=== PATIENT | female | born 1955 | race Caucasian/White ===

== ENCOUNTER → 2016-07-29 | Outpatient (CLI) | payer OTHER ==
[~2016-07-29] MED LIST: OXYC1TAB63 PO
[2016-07-29 10:36] LABS: APTT (PATIENT) 25.7 SEC (24.3-30.1); INTERNATIONAL NORMALIZED RATIO 0.9 RATIO; PROTHROMBIN TIME - PATIENT 10.1 SEC (9.8-11.6)
[2016-07-29 10:46] LABS: AUTOMATED NEUTROPHIL # 4.1 TH/MM3 (1.8-7.7); BASOPHIL % 0.2 % (0.0-2.0); EOSINOPHIL # 0.1 TH/MM3 (0-0.4); EOSINOPHIL % 1.9 % (0.0-4.0); HEMATOCRIT 39.5 % (35.0-46.0); HEMO FLAGS DIFF FINAL; LYMPH % 26.1 % (9.0-44.0); LYMPHOCYTE # 1.6 TH/MM3 (1.0-4.8); MEAN CELL VOLUME 90.4 FL (80.0-100.0); MEAN CORPUSCULAR HEMOGLOBIN 29.1 PG (27.0-34.0); MEAN CORPUSCULAR HGB CONC 32.2 % (32.0-36.0); MONO % 7.5 % (0.0-8.0); NEUT % 64.3 % (16.0-70.0); PLATELET COUNT 245 TH/MM3 (150-450); RED BLOOD COUNT 4.38 MIL/MM3 (4.00-5.30); RED CELL DISTRIBUTION WIDTH 17.1 % (11.6-17.2); WHITE BLOOD COUNT 6.3 TH/MM3 (4.0-11.0)
[2016-07-29 10:47] LABS: ALKALINE PHOSPHATASE 54 U/L (45-117); ALT (GPT) 29 U/L (10-53); ANION GAP 10 MEQ/L (5-15); AST (GOT) 20 U/L (15-37); BICARBONATE 26.5 MEQ/L (21.0-32.0); BLOOD UREA NITROGEN 16 MG/DL (7-18); CHLORIDE 105 MEQ/L (98-107); GLOMERULAR FILTRATION RATE 50 ML/MIN (>89); GLUCOSE,FASTING 92 MG/DL (74-99); POTASSIUM 4.1 MEQ/L (3.5-5.1); SODIUM (NA) 141 MEQ/L (136-145); TOTAL BILIRUBIN ADULT 0.4 MG/DL (0.2-1.0)
--- NOTE | 2016-07-29 13:44 | EKG ---
Date Performed: 07/29/2016 Time Performed: 09:58:23 PTAGE: 61 years EKG: Sinus rhythm LOW QRS VOLTAGE IN PRECORDIAL LEADS BORDERLINE ECG NO PREVIOUS TRACING DOCTOR: Robert Lyons Interpretating Date/Time 07/29/2016 13:42:37
== END ==
LOC: CPRE 09:35
PROVIDERS: ATTEND Obstetrics & Gynecology Gynecologic Oncology
DX: Z01.810 Encounter for preprocedural cardiovascular examination (principal); Z01.811 Encounter for preprocedural respiratory examination; Z01.812 Encounter for preprocedural laboratory examination; C54.1 Malignant neoplasm of endometrium
CPT/HCPCS: 36415; 80053; 85025; 85610; 85730; 93005

== ENCOUNTER 2016-08-12 05:33 | Observation (INO) | payer OTHER ==
[~2016-08-12] VITALS: Ht 162.6 cm; Wt 65.6 kg
[2016-08-12] MEDS ORDERED: POVIDONE IODINE 5% (ANTISEPSIS KIT) 4 APPLICATIONS EACH NARE PRN (06:00)
[2016-08-12] MEDS ORDERED: METOPROLOL TARTRATE 25 MG TAB PO PRN (06:00)
[2016-08-12] MEDS ORDERED: SODIUM CHLORIDE FLUSH PRN IV FLUSH (06:00)
[2016-08-12] MEDS ORDERED: CHLORHEXIDINE GLUCONATE 2 % 1 PACK (2 CLOTHS) TOPICAL PRN (06:00)
[2016-08-12] MEDS ORDERED: SODIUM CHLORID 0.9% 500 ML IV PRN (06:00)
[2016-08-12] MEDS ORDERED: ceFAZolin 1,000 MG/NS 100 ML IV SCH ×2 (06:00)
[2016-08-12] MEDS ORDERED: HEPARIN SODIUM - SQ 10,000 UNITS/ML VIAL SQ PRN (06:00)
[2016-08-12] MEDS ORDERED: LACTATED RINGER'S 1000 ML INJ 1,000 ML IV SCH (06:00)
[2016-08-12] MEDS ORDERED: INSULIN HUMAN REGULAR 1,000 UNITS/10 ML VIAL SQ PRN (06:00)
[2016-08-12 06:11] VITALS: BP 105/59; PULSE 63; RESP 16; TEMP 98; O2SAT 98
[2016-08-12] MEDS ORDERED: LIDOCAINE 1%/EPINEPHrine 1:100,000 SOLN 20 ML VIAL ONE (06:49)
[2016-08-12] MEDS ORDERED: SUGAMMADEX SODIUM 200 MG/2 ML VIAL IV PUSH ONE ×2 (07:09)
[2016-08-12] MEDS ORDERED: HYDROmorphone HCL PF 2 MG/ML VIAL ONE (07:10)
[2016-08-12] MEDS ORDERED: ACETAMINOPHEN 1000 MG/100 ML VIAL IV ONE (07:10)
[2016-08-12] MEDS ORDERED: MIDAZOLAM HCL 2 MG/2 ML VIAL ONE (07:13)
[2016-08-12] MEDS ORDERED: FAMOTIDINE 20 MG/2 ML VIAL ONE (07:13)
[2016-08-12] MEDS ORDERED: DEXAMETHASONE SOD PHOS 4 MG/ML VIAL ONE (07:13)
[2016-08-12] MEDS ORDERED: fentaNYL CITRATE 250 MCG/5 ML AMP ONE (07:25)
[2016-08-12] MEDS ORDERED: SODIUM CHLORIDE FLUSH BID IV FLUSH SCH (09:00)
[2016-08-12] MEDS: D5-1/2 NS + KCL 20 MEQ INJ 1,000 ML IV SCH ×3 (10:16→20:29)
[2016-08-12] MEDS ORDERED: SODIUM CHLORIDE 0.9% FLUSH 10 ML FLUSH IV FLUSH PRN (10:30)
[2016-08-12] MEDS ORDERED: LORazepam 0.5 MG TAB PO PRN (10:30)
[2016-08-12] MEDS ORDERED: oxyCODONE/ACETAMINOPHEN 5 MG/325 MG TAB PO PRN (10:30)
[2016-08-12] MEDS ORDERED: ONDANSETRON HCL 4 MG/2 ML VIAL IVP PRN (10:30)
[2016-08-12] MEDS ORDERED: DO NOT ADM ANY ANTICOAGULANT DRUGS PRN (10:34)
[2016-08-12] MEDS ORDERED: *MEPERIDINE 25 MG INJ VIAL PERIprocedural Use ONLY ONE (10:36)
[2016-08-12] MEDS: KETOROLAC TROMETHAMINE 30 MG/ML (IVP) VIAL IVP SCH ×3 (10:50→23:52)
[2016-08-12] MEDS ORDERED: PROPOFOL 200 MG/20 ML AMP IV ONE (12:00)
[2016-08-12] MEDS ORDERED: ePHEDrine/NS 25 MG/5 ML SYR IV ONE (12:00)
[2016-08-12] MEDS ORDERED: NORMOSOL R INJ 1,000 ML IV ONE (12:00)
[2016-08-12] MEDS ORDERED: LACTATED RINGER'S 1000 ML INJ 1,000 ML IV ONE (12:00)
[2016-08-12] MEDS ORDERED: NEOSTIGMINE 3 MG/3 ML SYR IV ONE (12:00)
[2016-08-12] MEDS ORDERED: ONDANSETRON HCL 4 MG/2 ML VIAL IV PUSH ONE (12:00)
[2016-08-12 14:00] VITALS: BP 135/72; PULSE 65; RESP 20; TEMP 95.9; O2SAT 100
[2016-08-12] MEDS: oxyCODONE/ACETAMINOPHEN 5 MG/325 MG TAB PO PRN ×2 (15:56→20:24)
[2016-08-12 16:00] VITALS: BP 115/67; PULSE 66; RESP 20; TEMP 95.4; O2SAT 100
[2016-08-12 20:00] VITALS: BP 107/65; PULSE 67; RESP 18; TEMP 97; O2SAT 100
[2016-08-12] MEDS: SODIUM CHLORIDE 0.9% FLUSH 10 ML FLUSH IV FLUSH SCH (21:00)
[2016-08-12 22:06] VITALS: O2SAT 98
[2016-08-13] VITALS: BP 110/68; PULSE 70; RESP 16; TEMP 96.9; O2SAT 100
[2016-08-13] MEDS: oxyCODONE/ACETAMINOPHEN 5 MG/325 MG TAB PO PRN (00:50)
[2016-08-13 04:00] VITALS: BP 102/55; PULSE 66; RESP 17; TEMP 96.8; O2SAT 98
[2016-08-13] MEDS: KETOROLAC TROMETHAMINE 30 MG/ML (IVP) VIAL IVP SCH (05:22)
[2016-08-13] MEDS ORDERED: OXYC1TAB63 PO (06:51)
[2016-08-13 06:59] LABS: AUTOMATED NEUTROPHIL # 4.5 TH/MM3 (1.8-7.7); BASOPHIL % 0.1 % (0.0-2.0); EOSINOPHIL % 0.3 % (0.0-4.0); HEMATOCRIT 31.4 % (35.0-46.0); HEMO FLAGS DIFF FINAL; LYMPH % 18.2 % (9.0-44.0); LYMPHOCYTE # 1.1 TH/MM3 (1.0-4.8); MEAN CORPUSCULAR HEMOGLOBIN 30.8 PG (27.0-34.0); MEAN CORPUSCULAR HGB CONC 34.2 % (32.0-36.0); MONO % 6.9 % (0.0-8.0); NEUT % 74.5 % (16.0-70.0); PLATELET COUNT 169 TH/MM3 (150-450); RED BLOOD COUNT 3.49 MIL/MM3 (4.00-5.30)
[2016-08-13 07:20] LABS: BICARBONATE 26.2 MEQ/L (21.0-32.0); POTASSIUM 4.2 MEQ/L (3.5-5.1)
[2016-08-13 08:00] VITALS: BP 94/43; PULSE 64; RESP 12; TEMP 96.4; O2SAT 99
[2016-08-13] MEDS: SODIUM CHLORIDE 0.9% FLUSH 10 ML FLUSH IV FLUSH SCH (09:00)
--- NOTE | 2016-08-17 11:20 | MP ---
cc: PARVEEN TEAGUE M.D., KELLY L. MD DATE OF SURGERY 08/12/2016 PREOPERATIVE DIAGNOSIS Endometrial adenocarcinoma, grade 1. POSTOPERATIVE DIAGNOSIS Endometrial adenocarcinoma, grade 1. PROCEDURE Robotic-assisted laparoscopic hysterectomy bilateral salpingo-oophorectomy. 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 She was counseled regarding options and was in favor of surgery via minimally invasive techniques. FINDINGS On exam under anesthesia, the uterine cavity sounded to 6 cm. Upon laparoscopy, the uterus was small. There was a fundal fibroid that was approximately 5 cm in diameter, tubes and ovaries appeared normal and it appears as though she was status post prior tubal ligation. There were no appreciably enlarged pelvic or para-aortic lymph nodes. There were no peritoneal implants. The liver diaphragm edges were smooth. Large, small bowel, and adjacent mesentery were normal in appearance. The uterus once removed was inspected. The tumor was thought to be between 1 and 1-1/2 cm in diameter. It was exophytic in that it arose from the endometrium, but there was no overt evidence of myometrial invasion. There was no endocervical extension. PROCEDURE The patient taken to the operating room, placed in the dorsal lithotomy position after general endotracheal anesthesia was administered. A time-out was undertaken. She was identified by sight recognition and hospital ID bracelet and the proposed procedure was reviewed and confirmed. She was carefully positioned in padded Moris stirrups. Her arms were padded and secured to the sides. She was further secured to the operating table with egg crate padding and tape in a cross chest over the shoulder fashion. All sites noted to be properly aligned with no malalignments or pressure points. She was prepped in a sterile fashion, draped below the waist, placed in high lithotomy position, cervix was grasped, uterine cavity sounded, cervix dilated and a standard V-Care manipulator was inserted and secured in the usual fashion. Wright catheter placed in the bladder. She was returned to low lithotomy position. A change of sterile gloves was undertaken. We completed draping in anticipation of laparoscopy. After confirming that an orogastric airway was in the stomach on suction with manual elevation of the abdominal wall and direct laparoscopic visualization, a 5 mm cannula was introduced into the left upper quadrant and an atraumatic entry was confirmed. Carbon dioxide gas was insufflated into the peritoneal cavity. A 12 mm cannula placed in the midline above the umbilicus and a 8-mm cannulas placed in the right upper quadrant and left lateral quadrant. She was placed in steep Trendelenburg position. Peritoneal washings were obtained for cytology. The anatomy was explored with findings as described above. Three Ray-Sanaz sponges were placed around the root of the small bowel mesentery. The robotic system brought to the operative field attached in usual fashion. Monopolar scissors, fenestrated bipolar forceps and progressed manipulators placed in arms number one, two and three respectively. I took my place at the surgeon's console. The right round ligament isolated, cauterized transected. The anterior portion leafs of the broad ligament were opened. The right ureter was identified. The right infundibulopelvic ligament was isolated. The intervening peritoneum was opened. The infundibulopelvic ligament was cauterized to the level of the pelvic brim where it was transected. The posterior peritoneum opened along the right side of the uterus and cervix. Right vesicouterine peritoneum dissected off the lower uterine segment and cervix. Right uterine vessels were skeletonized, cauterized and transected as were the cardinal, paracervical and uterosacral ligaments. Attention was directed toward the left side. Adhesions were taken down to mobilize the colon to gain access to the left pelvic sidewall structures. The left round ligament was isolated, cauterized and transected and the anterior and posterior leafs of the broad ligament were opened. The left ureter was identified. The left infundibulopelvic ligament was isolated to the level of the pelvic brim where it was cauterized and transected. The posterior peritoneum was opened along the left side of the uterus and cervix and the left vesicouterine peritoneum was dissected off the lower uterine segment and cervix. The left uterine vessels were skeletonized, cauterized and transected as were the cardinal, paracervical, and uterosacral ligaments and then a circumferential colpotomy was performed the cervix from the upper vagina. The specimen was withdrawn transvaginally which included uterus, cervix, tubes and ovaries and the attached fundal leiomyoma and a Pneumooccluder balloon was placed in the vagina to maintain pneumoperitoneum. Instruments one and three exchanged for needle drivers. As a 0 Vicryl suture was introduced, the vaginal cuff was closed starting at the left corner full-thickness closure including the posterior uterosacral ligament and posterior peritoneum tied via instrument tie. The closure was held on counter traction as a running continuous closure was carried across the vaginal apex to the contralateral corner where it was similarly fixed, secured, and tied, the suture was cut and the needle was removed. The pelvis was thoroughly irrigated, rendered free of blood and clot. There was a good margin between the bladder edge and the vaginal cuff suture line and a good peristalsis of ureters bilaterally. The bladder was intact. To assist in continued hemostasis, hemostatic David powder was placed across the vaginal cuff and lateral pelvic sidewalls. Frozen section came back showing a small noninvasive preliminary low grade tumor. It was felt that all reasonable surgical objectives in this individual had been completed so the robotic instruments were removed. The robotic system was disengaged from the operative field and then I reentered the bedside under sterile condition. Under laparoscopic visualization, the 12 mm fascial defect was closed with interrupted 0 Vicryl sutures using a needle pass apparatus. The sutures were tied securely which rendered the fascia completely air tight and hemostatic. The remaining cannulas were withdrawn. Carbon dioxide gas was removed from the peritoneal cavity. 3-0 Vicryl subcutaneous, 3-0 Vicryl subcuticular and Steri-Strips were used to close the skin incisions. She was returned to dorsal lithotomy position. Pelvic exam confirmed the vaginal cuff was well-supported. There were no vaginal lacerations. No remaining foreign objects in the vagina and final counts were correct. Superficial irritation at the introitus was rendered hemostatic with silver nitrate. She was returned to dorsal supine position and was pending reversal of anesthesia when I left the operating room to precede her to the Post Anesthesia Care Unit and to speak to family members who were waiting in the surgical waiting area. MD JERAMY Vasquez/ZULEYMA /11:09 AM /11:03 AM
--- NOTE | 2016-08-19 09:15 | MD ---
cc: PARVEEN TEAGUE M.D., KELLY L. MD ADMISSION DATE: 08/12/2016 DISCHARGE DATE: 08/13/2016 PROCEDURE 08/12/2016, robotic-assisted laparoscopic hysterectomy, bilateral salpingo-oophorectomy. DIAGNOSIS Endometrial cancer. HOSPITAL COURSE She did well during the first 24 hours after surgery, hemodynamically stable, tolerating oral intake. Wright catheter removed, voiding pending. She has been out of bed to chair. No significant complaints. OBJECTIVE In's and out's [id number]. Labs are pending at the time of this dictation. PHYSICAL EXAMINATION VITAL SIGNS: Afebrile, pulse 66-70, respirations 16-18, blood pressure 102-110 over 55-68, O2 saturations greater than or equal to 98%. GENERAL: Alert, oriented x3. LUNGS: Clear except for mild basilar rales. CARDIOVASCULAR: Regular rate and rhythm. ABDOMEN: Soft. Incision is clean and dry. PROJECTOR OPERATOR: No bleeding. EXTREMITIES: Nontender. SCDs intact. ASSESSMENT Postop day #1 doing well in early postoperative period. FINDINGS Preliminary pathology reviewed, activities, restrictions discussed. Questions were answered. She expressed good understanding. PLAN Anticipate discharge to home today. She is to contact our office to schedule follow up in 2 weeks and our office number is again made available. She is to contact us should she have any questions or problems between now and that time. She is to resume prior medications. Prescription is provided for Percocet. MD JERAMY Vasquez/CHICHI /6:55 AM /9:09 AM
== END 2016-08-13 10:00 | disposition home or self-care (01) ==
LOC: HSDC 05:33 → HSDI 10:21 → HOCA 13:33
PROVIDERS: ADMIT Obstetrics & Gynecology Gynecologic Oncology; ATTEND Obstetrics & Gynecology Gynecologic Oncology
DX: C54.1 Malignant neoplasm of endometrium (principal); D25.9 Leiomyoma of uterus, unspecified; N83.8 Other noninflammatory disorders of ovary, fallopian tube and broad ligament; Z88.8 Allergy status to other drugs, medicaments and biological substances
CPT/HCPCS: 00840; 58571; 80048; 85025; 86850; 86900; 86901; 88309; 88329; 94150; G0378; J0131; J0690; J1100; J1170; J1644; J1885; J2175; J2250; J2405; J2710; J3010; J3480; J7120; 88307